=== PATIENT | female | born 1995 | race Caucasian/White ===

== ENCOUNTER 2018-12-02 23:37 | Outpatient (CLI) | payer BC ==
[~2018-12-02] VITALS: Ht 152.4 cm; Wt 77.7 kg
== END 2018-12-03 01:25 | disposition home or self-care (01) ==
LOC: LDOP 23:37
PROVIDERS: ATTEND Obstetrics & Gynecology
DX: Z34.83 Encounter for supervision of other normal pregnancy, third trimester (principal); Z3A.39 39 weeks gestation of pregnancy
CPT/HCPCS: 59025; 89060; 99211; G0463; Q0114

== ENCOUNTER 2018-12-03 06:32 | Inpatient (IN) | payer BC ==
[~2018-12-03] VITALS: Ht 152.4 cm; Wt 78.0 kg
[2018-12-03 06:43] VITALS: BP 141/87
[2018-12-03] MEDS ORDERED: OXYTOCIN 30U/ 0.9% NaCL 500ML 500 ML IV PRN (07:16)
[2018-12-03] MEDS ORDERED: D5%-LACTATED RINGERS 1,000 ML IV SCH (07:16)
[2018-12-03] MEDS ORDERED: LACTATED RINGERS 1,000 ML IV SCH ×2 (07:16→08:22)
[2018-12-03] MEDS ORDERED: OXYTOCIN 30U/ 0.9% NaCL 500ML 500 ML IV ONE (07:16)
[2018-12-03] MEDS ORDERED: FENTANYL/BUPIV./NS/PF 250 ML EPIDCONT SCH ×2 (07:19→08:22)
[2018-12-03] MEDS ORDERED: ONDANSETRON 2MG/ML, 2ML IVPush PRN (07:30)
[2018-12-03] MEDS ORDERED: FENTANYL PF 500 MCG, BUPIVACAINE/PF 0.5%, 30ML 62.5 ML in SODIUM CHLORIDE 0.9% 177.5 ML EPIDCONT SCH (07:30)
[2018-12-03] MEDS ORDERED: FENTANYL PF 100 MCG/2ML IVPush PRN (07:30)
[2018-12-03] MEDS ORDERED: TERBUTALINE 1 MG/ML, 1ML IVPush PRN (07:30)
[2018-12-03] MEDS ORDERED: TERBUTALINE 1 MG/ML, 1ML SQ PRN (07:30)
[2018-12-03] MEDS ORDERED: PENICILLIN GK 5,000,000 UNITS in DEXTROSE 5% 100 ML IVPB ONE (07:30)
[2018-12-03 07:47] LABS: BASOPHILS # (AUTO) 0.03 x10^3/uL (0-0.1); BASOPHILS % (AUTO) 0 % (0-1); EOSINOPHILS # (AUTO) 0.02 x10^3/uL (0-0.4); EOSINOPHILS % (AUTO) 0 % (1-7); LYMPHOCYTES # (AUTO) 1.79 x10^3/uL (1-3.4); LYMPHOCYTES % (AUTO) 12 % (22-44); MD NO; MEAN CORPUSCULAR HEMOGLOBIN 30.6 pg (27.0-34.8); MEAN CORPUSCULAR HGB CONC 33.2 g/dL (32.4-35.8); MEAN CORPUSCULAR VOLUME 92.1 fL (80-100); MEAN PLATELET VOLUME 8.6 fL (7.4-10.4); MONOCYTES # (AUTO) 0.66 x10^3/uL (0.2-0.8); MONOCYTES % (AUTO) 4 % (2-9); NEUTROPHILS # (AUTO) 12.59 x10^3/uL (1.8-6.8); NEUTROPHILS % (AUTO) 84 % (42-75); PLATELET COUNT 249 x10^3/uL (130-400); RED BLOOD COUNT 5.11 x10^6/uL (3.82-5.3); RED CELL DISTRIBUTION WIDTH 13.4 % (9.6-15.2)
[2018-12-03] MEDS ORDERED: NEWBORN KIT ONE (07:49)
[2018-12-03] MEDS ORDERED: LACTATED RINGERS 1,000 ML IVBOLUS PRN (08:30)
[2018-12-03] MEDS ORDERED: NALOXONE 0.4 MG/ML, 1ML IVPush PRN (08:30)
[2018-12-03] MEDS ORDERED: EPHEDRINE 50 MG/ML, 1ML IVPush PRN (08:30)
[2018-12-03] MEDS ORDERED: FLU VACC QS2019-20 36MOS UP/PF 0.5 ML IM-VACC ONE (09:00)
[2018-12-03] MEDS ORDERED: OXYTOCIN 30U/ 0.9% NaCL 500ML 500 ML ONE (09:29)
[2018-12-03] MEDS ORDERED: LIDOCAINE 1%, 20ML ONE (09:29)
[2018-12-03] MEDS ORDERED: MISOPROSTOL 200 MCG TABLET ONE (09:30)
[2018-12-03] MEDS ORDERED: PENICILLIN GK 2,500,000 UNITS in DEXTROSE 5% 100 ML IVPB SCH (11:30)
[2018-12-03] MEDS ORDERED: OXYTOCIN 30U/ 0.9% NaCL 500ML 500 ML IV SCH (12:58)
[2018-12-03] MEDS ORDERED: MISOPROSTOL 200 MCG TABLET PR PRN (13:00)
[2018-12-03] MEDS ORDERED: ONDANSETRON 2MG/ML, 2ML IV PRN (13:00)
[2018-12-03] MEDS ORDERED: ACETAMINOPHEN 325 MG TABLET PO PRN (13:00)
[2018-12-03] MEDS ORDERED: HYDROcodone/APAP 5/325 TABLET PO PRN (13:00)
[2018-12-03] MEDS ORDERED: RHOGAM FROM BLOOD BANK 1 NOTE EA IM/IV ONE (13:00)
[2018-12-03] MEDS ORDERED: BISACODYL 10 MG SUPP PR PRN (13:00)
[2018-12-03 13:30] VITALS: BP 112/73
[2018-12-03 19:17] LABS: BASOPHILS # (AUTO) 0.04 x10^3/uL (0-0.1); BASOPHILS % (AUTO) 0 % (0-1); EOSINOPHILS % (AUTO) 0 % (1-7); LYMPHOCYTES # (AUTO) 1.36 x10^3/uL (1-3.4); LYMPHOCYTES % (AUTO) 9 % (22-44); MD NO; MEAN CORPUSCULAR HEMOGLOBIN 31.1 pg (27.0-34.8); MEAN CORPUSCULAR HGB CONC 33.5 g/dL (32.4-35.8); MEAN CORPUSCULAR VOLUME 92.9 fL (80-100); MEAN PLATELET VOLUME 8.9 fL (7.4-10.4); MONOCYTES # (AUTO) 0.85 x10^3/uL (0.2-0.8); MONOCYTES % (AUTO) 6 % (2-9); NEUTROPHILS # (AUTO) 13.02 x10^3/uL (1.8-6.8); NEUTROPHILS % (AUTO) 85 % (42-75); PLATELET COUNT 235 x10^3/uL (130-400); RED BLOOD COUNT 4.63 x10^6/uL (3.82-5.3); RED CELL DISTRIBUTION WIDTH 13.4 % (9.6-15.2)
[2018-12-03 20:00] VITALS: BP 113/77
[2018-12-03] MEDS: IBUPROFEN 800 MG TABLET PO PRN (23:00)
[2018-12-03] MEDS: DOCUSATE 100 MG CAPSULE PO PRN (23:00)
[2018-12-04] VITALS: BP 123/81
[2018-12-04 04:32] VITALS: BP 120/78
[2018-12-04 08:15] VITALS: BP 112/80
[2018-12-04] MEDS: PRENATAL VIT/IRON/FA 1 EACH TABLET PO SCH (09:00)
[2018-12-04] MEDS: IBUPROFEN 800 MG TABLET PO PRN (19:14)
[2018-12-04] MEDS: OXYcodone/APAP 5/325MG TABLET PO PRN (19:14)
[2018-12-04 20:00] VITALS: BP 122/82
[2018-12-05 08:55] VITALS: BP 115/74
[2018-12-05] MEDS: PRENATAL VIT/IRON/FA 1 EACH TABLET PO SCH (09:11)
[2018-12-05] MEDS: IBUPROFEN 800 MG TABLET PO PRN (09:11)
[2018-12-05] MEDS: DOCUSATE 100 MG CAPSULE PO PRN (09:11)
[2018-12-05] MEDS: OXYcodone/APAP 5/325MG TABLET PO PRN ×2 (09:12→10:23)
[2018-12-05] MEDS ORDERED: IBUP-1222 PO (10:36)
[2018-12-05] MEDS ORDERED: DOCU-131 PO (10:36)
[2018-12-05] MEDS ORDERED: OXYC-302 PO (10:36)
== END 2018-12-05 10:46 | disposition home or self-care (01) | DRG 807 ==
LOC: LDOP 06:32 → LDIP 07:23 → 2NW 13:31
PROVIDERS: ADMIT Obstetrics & Gynecology; ATTEND Obstetrics & Gynecology
PROC: 10E0XZZ Delivery of Products of Conception, External Approach (ICD-10-PCS; principal; 2018-12-03)
PROC: 0HQ9XZZ Repair Perineum Skin, External Approach (ICD-10-PCS; 2018-12-03)
PROC: 3E0R3BZ Introduction of Anesthetic Agent into Spinal Canal, Percutaneous Approach (ICD-10-PCS; 2018-12-03)
PROC: 00HU33Z Insertion of Infusion Device into Spinal Canal, Percutaneous Approach (ICD-10-PCS; 2018-12-03)
DX: O99.824 Streptococcus B carrier state complicating childbirth (principal); Z37.0 Single live birth; O70.0 First degree perineal laceration during delivery; O69.81X0 Labor and delivery complicated by cord around neck, without compression, not applicable or unspecified; Z3A.39 39 weeks gestation of pregnancy
CPT/HCPCS: 36415; S0020; 85025; 86850; 86900; 89060; 90686; G0378; J2540; J3010; J7050; J7120; Q0114